=== PATIENT | male | born 1985 ===

== ENCOUNTER 2021-08-20 13:07 | Emergency (ER) | payer SELFPAY ==
[2021-08-20 14:11] VITALS: BP 144/87
--- NOTE | 2021-08-20 15:57 | Emergency Department Report ---
ED Psych HPI - General Chief Complaint: Psych Stated Complaint: DEPRESSION Time Seen by Provider: 08/20/21 15:56 Source: patient Mode of arrival: Ambulatory - Related Data Allergies Allergy/AdvReac Type Severity Reaction Status Date / Time No Known Allergies Allergy Verified 08/20/21 14:06 ED Review of Systems ROS: Stated complaint: DEPRESSION Other details as noted in HPI ED Past Medical Hx - Past Medical History Previous Medical History?: No - Surgical History Past Surgical History?: No ED Physical Exam - General Limitations: No Limitations ED Course Vital Signs 08/20/21 14:07 Temperature 98.4 F Pulse Rate 76 Respiratory 16 Rate Blood Pressure 144/87 [Left] O2 Sat by Pulse 96 Oximetry Critical care attestation.: If time is entered above; I have spent that time in minutes in the direct care of this critically ill patient, excluding procedure time. ED Disposition Condition: Stable
--- NOTE | 2021-08-20 16:05 | Emergency Department Report ---
Blank Doc - Documentation Documentation: I did not participate in the care of this patient. He had eloped prior to my evaluation.
== END 2021-08-20 16:05 | disposition left against medical advice (07) ==
LOC: ED 13:07
DX: F32.9 Major depressive disorder, single episode, unspecified (principal); Z53.21 Procedure and treatment not carried out due to patient leaving prior to being seen by health care provider